=== PATIENT | male | born 1945 ===

== ENCOUNTER 2017-03-20 14:54 | Inpatient (IN) | payer MEDICARE ==
[2017-03-20 15:19] LABS: BASO % 0.2 % (0-2); EOS % 3.1 % (0-7); EOSINOPHIL ABSOLUTE COUNT 0.2 tho/cmm (0.0-0.7); HCT-HEMATOCRIT 33.5 % (36.0-53.5); HGB-HEMOGLOBIN 11.6 gm/dl (13.5-17.0); IMMATURE GRANULOCYTES ABSOLUTE 0.02 tho/cmm (0-0.03); IMMATURE GRANULOCYTES PERCENT 0.4 % (0-0.3); LYMPH % 27.3 % (20-45); LYMPH ABSOLUTE COUNT 1.5 tho/cmm (0.8-4.5); MCH (MEAN CORPUSCULAR HGB) 37.9 pg (28.0-32.0); MCHC MEAN CORPUSCULAR HGB CONC 34.6 % (32.0-36.0); MCV (MEAN CELL VOLUME) 109.5 fl (82.0-96.0); MEAN PLATELET VOLUME 11.6 cmc (9.4-12.4); MONO % 3.5 % (0-12); MONOCYTE ABSOLUTE COUNT 0.2 tho/cmm (0.0-1.2); NEUTROPHIL ABSOLUTE COUNT 3.6 tho/cmm (1.6-8.0); NEUTROPHIL-AUTOMATED 3.6 tho/cmm (1.6-8.0); NEUTROPHILS % 65.5 % (40-80); RED BLOOD COUNT 3.06 mil/cmm (4.40-5.70); RED CELL DISTRIBUTION WIDTH 14.2 % (12.4-16.4); WHITE BLOOD COUNT 5.4 tho/cmm (4.0-10.0)
[2017-03-20] MEDS ORDERED: CELEXA20 M2 PO (15:31)
[2017-03-20] MEDS ORDERED: TOPROL XL50 M1 PO (15:31)
[2017-03-20] MEDS ORDERED: ZESTRIL40 M2 PO (15:31)
[2017-03-20] MEDS ORDERED: PERCOCET 10-321 EACH PO (15:31)
[2017-03-20] MEDS ORDERED: FLOMAX0.4 M1 PO (15:31)
[2017-03-20] MEDS ORDERED: XARELTO10 M1 PO (15:32)
[2017-03-20] MEDS ORDERED: MECLIZINE HCL25 M4 PO (15:32)
[2017-03-20] MEDS ORDERED: CETIRIZINE HCL10 M1 PO (15:32)
[2017-03-20 15:39] LABS: ANION GAP 13 mmol/L (0-20); BLOOD UREA NITROGEN 19 mg/dl (6-24); CALCIUM 7.8 mg/dl (8.5-10.5); CARBON DIOXIDE-VENOUS 23 mmol/L (22-32); CHLORIDE 110 mmol/l (96-110); GLUCOSE 125 mg/dL (70-110); PLATELET COUNT 85 tho/cmm (150-450); SODIUM 142 mmol/L (135-145); eGFR VALUE FOR BLACK 79 mL/Min
[2017-03-20 15:40] LABS: INR 1.2 INR (0.9-1.1); PROTHROMBIN TIME 14.6 SECONDS (9.0-13.6)
[2017-03-23 05:41] LABS: ANION GAP 10 mmol/L (0-20); BLOOD UREA NITROGEN 15 mg/dl (6-24); CALCIUM 7.8 mg/dl (8.5-10.5); CARBON DIOXIDE-VENOUS 27 mmol/L (22-32); CHLORIDE 105 mmol/l (96-110); GLUCOSE 109 mg/dL (70-110); POTASSIUM 3.8 mmol/L (3.7-5.1); SODIUM 138 mmol/L (135-145); eGFR VALUE FOR BLACK 79 mL/Min
[2017-03-24 06:42] LABS: ANION GAP 11 mmol/L (0-20); BLOOD UREA NITROGEN 12 mg/dl (6-24); CALCIUM 7.4 mg/dl (8.5-10.5); CARBON DIOXIDE-VENOUS 30 mmol/L (22-32); CHLORIDE 106 mmol/l (96-110); CREATININE 0.88 mg/dl (0.60-1.30); GLUCOSE 97 mg/dL (70-110); SODIUM 142 mmol/L (135-145); eGFR VALUE FOR BLACK >90 mL/Min
[2017-03-24 06:56] LABS: POTASSIUM 4.6 mmol/L (3.7-5.1)
[2017-03-24] MEDS ORDERED: LASIX40 M1 PO (12:19)
[2017-03-24] MEDS ORDERED: POTASSIUM CHLO20 ME3 PO (12:21)
[2017-03-24] MEDS ORDERED: TOPROL XL25 M1 PO (12:33)
[2017-03-24] MEDS ORDERED: XARELTO15 M1 PO (12:37)
== END 2017-03-24 16:30 | DRG 310 ==
LOC: EDMED 14:54 → EMR2 17:19 → PCUB 17:50
PROVIDERS: Emergency Medicine; Internal Medicine; ADMIT Internal Medicine Cardiovascular Disease
PROC: 5A2204Z Restoration of Cardiac Rhythm, Single (ICD-10-PCS; principal; 2017-03-21)
DX: I48.0 Paroxysmal atrial fibrillation (principal); I95.9 Hypotension, unspecified; E87.70 Fluid overload, unspecified; I10 Essential (primary) hypertension; N40.1 Benign prostatic hyperplasia with lower urinary tract symptoms; G47.33 Obstructive sleep apnea (adult) (pediatric); I08.1 Rheumatic disorders of both mitral and tricuspid valves; I48.1 Persistent atrial fibrillation; I25.10 Atherosclerotic heart disease of native coronary artery without angina pectoris; N39.498 Other specified urinary incontinence; Z79.01 Long term (current) use of anticoagulants
CPT/HCPCS: C1751; C8925; G0378; J1940; J7030; P9045